=== PATIENT | male | born 1995 | race Two or more races ===

== ENCOUNTER 2018-05-01 17:58 | Emergency (ER) | payer OTHER ==
[~2018-05-01] VITALS: Ht 177.8 cm; Wt 81.6 kg
[2018-05-01] MEDS ORDERED: ONDANSETRON HCL 4 MG/2 ML VIAL IV ONE ×2 (19:00→21:45)
[2018-05-01] MEDS ORDERED: MORPHINE SULFATE 4 MG/ML SYR/VIAL IV ONE (19:00)
[2018-05-01 20:45] VITALS: BP 127/72
[2018-05-01] MEDS ORDERED: HYDROcodone-ACET 10/325MG TAB PO ONE (21:00)
== END 2018-05-01 21:52 | disposition home or self-care (01) ==
LOC: ER 18:03
DX: S42.021A Displaced fracture of shaft of right clavicle, initial encounter for closed fracture (principal); S40.011A Contusion of right shoulder, initial encounter; W19.XXXA Unspecified fall, initial encounter; Y93.23 Activity, snow (alpine) (downhill) skiing, snowboarding, sledding, tobogganing and snow tubing; Y99.8 Other external cause status; Y92.89 Other specified places as the place of occurrence of the external cause
CPT/HCPCS: 73000; 73030; 96374; 96375; 96376; 99283; J2270; J2405